=== PATIENT | female | born 1970 | race Caucasian/White ===

== ENCOUNTER 2016-08-29 07:27 | Day surgery (SDC) | payer BC ==
[2016-08-24 10:04] LABS: BASOPHILS 0.2 %; BASOPHILS ABSOLUTE 0.01 10/3/uL (0.0-0.16); EOSINOPHILS 0.8 %; EOSINOPHILS ABSOLUTE 0.05 10/3/uL (0.0-0.53); HEMATOCRIT 41.5 % (36.0-48.0); HEMOGLOBIN 14.5 g/dL (12.0-16.0); IMMATURE GRANULOCYTES 0.2 %; IMMATURE GRANULOCYTES ABSOLUTE 0.01 10/3/uL (0.0-0.11); LYMPHOCYTES 43.7 %; LYMPHOCYTES ABSOLUTE 2.62 10/3/uL (0.67-4.30); MEAN CORPUS HGB CONC 34.9 g/dL (32.0-36.0); MEAN CORPUSCULAR HEMOGLOB 30.8 pg (26.0-34.0); MEAN PLATELET VOLUME 8.7 fL (9.2-13.0); MONOCYTES 6.8 %; MONOCYTES ABSOLUTE 0.41 10/3/uL (0.21-1.20); NEUTROPHILS 48.3 %; NEUTROPHILS ABSOLUTE 2.89 10/3/uL (2.02-8.40); PLATELET COUNT 176 10/3/uL (150-400); RBC DISTRIBUTION WIDTH 12.6 % (12.0-16.0); RED CELL COUNT 4.71 10/6/uL (4.0-5.6)
[2016-08-24 10:12] LABS: MANUAL DIFF NO %; MEAN CORPUSCULAR VOLUME 88.1 fL (80-100)
[2016-08-24 10:20] LABS: A/G RATIO 1.2 (0.7-1.9); ALKALINE PHOSPHATASE 87 U/L (45-117); BUN (BLOOD UREA NITROGEN) 17 MG/DL (6-23); CALCIUM, SERUM 9.1 MG/DL (8.5-10.4); CHLORIDE, SERUM 106 MMOL/L (96-112); CO2 (CARBON DIOXIDE) 30 MMOL/L (24-34); CREATININE 0.88 MG/DL (0.55-1.02); GFR AFRICAN AMERICAN 92 ML/MIN (>=60); GFR NON AFRICAN AMERICAN 79 ML/MIN (>=60); GLOBULIN 3.3 G/DL (2.5-4.1); GLUCOSE, SERUM 88 MG/DL (60-99); POTASSIUM, SERUM 4.5 MMOL/L (3.5-5.3); SGOT(AST) 16 U/L (5-40); SGPT(ALT) 16 U/L (5-65); SODIUM, SERUM 143 MMOL/L (135-148); TOTAL PROTEIN 7.3 G/DL (6.0-8.5)
--- NOTE | ~2016-08-29 | OP ---
Record Of Operation [facility] [address] [place]. [address] NAME: VISH MAI : 72 STATUS : [facility]#: [id number] AGE: 46 ADM/REG DATE : 08/29/16 MR#: [id number] REPORT SERV DATE: 08/30/16 DICTATED BY: KELLEY FERRER III DATE: 08/29/16 REPORT STATUS : Draft TRANSCRIBED BY: MODL DATE: 08/29/16 DATE OF PROCEDURE: 08/29/2016 PREOPERATIVE DIAGNOSIS: Recurrent hidradenitis suppurativa of the right proximal thigh. OPERATIVE DIAGNOSIS: Recurrent hidradenitis suppurativa of the right proximal thigh. PROCEDURE: Wide resection of recurrent hidradenitis suppurativa, right proximal thigh. SURGEON: Kelley Ferrer M.D. ANESTHESIA: General with intubation. COMPLICATIONS: None. ESTIMATED BLOOD LOSS: Less than 5 mL. SPECIMENS: Hidradenitis suppurativa of the left proximal thigh. DRAINS: None. LAP AND SPONGE COUNT: Correct x3. BRIEF HISTORY: This 46-year-old female presented with recurrent hidradenitis suppurativa of the left proximal thigh. It was felt that wide resection of this area was indicated. This was a chronically draining and intermittently opening wound. This procedure, the risks, benefits, and alternatives, including but not limited to the risk for bleeding, infection, pain, swelling, scarring, deformity to the area, seroma formation, hematoma formation, wound failure, wound dehiscence requiring prolonged wound care, nerve injury, chronic paresthesia, pain, numbness, neuralgia or neuroma, recurrent disease requiring further surgery, and unforeseen complications including deep venous thrombosis, pulmonary embolus, myocardial infarction, stroke, pneumonia, and , were fully explained to the patient prior to surgery. Her questions were answered. She understood the risks and agreed to surgery as planned. DESCRIPTION OF PROCEDURE: After being appropriately identified and after discussing risks of surgery with her again in the preoperative area and after identifying the area of concern with her in the preoperative area, she was taken to the operating room and placed in the supine position on the operating room table. General anesthesia was administered and she was intubated without difficulty. The right proximal thigh and groin were prepped and draped sterilely in usual fashion. After an appropriate "time-out" per [facility] standards, a wide elliptical-shaped incision was made around the area of concern. This included all the skin involved and all the sinus tract involved. The incision was continued through the subcutaneous tissue down to the fascia level. The entire block of tissue was resected. This was sent for permanent pathology. Record Of Operation [facility] [address] [address] NAME: VISH MAI : 72 STATUS : [facility]#: [id number] AGE: 46 ADM/REG DATE : 08/29/16 MR#: [id number] REPORT SERV DATE: 08/30/16 DICTATED BY: KELLEY FERRER III DATE: 08/29/16 REPORT STATUS : Draft TRANSCRIBED BY: BA DATE: 08/29/16 Using sharp dissection, the skin and subcutaneous tissue around the edges of the defect were fully mobilized for several centimeters so as to allow for closure. Hemostasis was assured. The subcutaneous tissue was then closed with interrupted 3-0 chromic sutures. The skin was closed with interrupted 3-0 Prolene sutures. The incision was injected with 0.5% Marcaine. Dressings were applied. Anesthesia was reversed and the patient was taken to the recovery room in stable condition. She tolerated the procedure well. Her family was informed of the results of surgery. The patient was discharged when stable and comfortable. Her family was advised that she should keep the wound clean and dry for 48 hours. She should not drive for two to three days after surgery or while using narcotics, and that she should return in two weeks for followup or sooner if any fever, chills, wound drainage, or other problems prior to that time. She was given a prescription for Percocet 7.5 one t.i.d., #12, as needed for pain, which she was advised not to use while driving. ANTONIO/BA Kelley Ferrer III, M.D. / [id number] CC: Kori Luong III, M.D.
--- NOTE | ~2016-08-29 | PREOPHP ---
PreOp History and Physical [place] [id number] [facility] [place]. [address] NAME: VISH MAI : 72 STATUS : [facility] [place]#: [id number] AGE: 46 ADM/REG DATE : MR#: [id number] REPORT SERV DATE: 08/29/16 DICTATED BY: KELLEY FERRER III DATE: 08/16/16 REPORT STATUS : Draft TRANSCRIBED BY: MODL DATE: 08/16/16 HISTORY OF PRESENT ILLNESS: This is a 46-year-old female who comes to the operating room for excision or resection of hidradenitis suppurativa of the right groin or proximal thigh. The patient has a wound on her right thigh where a previous cystic lesion was excised. She has had intermittent drainage from the area since that time. She appears to have hidradenitis suppurativa of the right proximal thigh or right groin. This has failed to respond to nonoperative management. She comes now for resection of the involved area of the right proximal thigh or groin. PAST MEDICAL HISTORY: Essentially unremarkable. PAST SURGICAL HISTORY: Includes excision of benign cystic lesion from the right proximal thigh, section, hysterectomy, and laparoscopic surgery. REVIEW OF SYSTEMS: The patient complains of weight gain, frequent headaches, and back pain. SOCIAL HISTORY: The patient is . She has a previous history of tobacco use. She has current history of occasional alcohol use. FAMILY HISTORY: Positive for cancer, diabetes, and stroke. ALLERGIES: MORPHINE. MEDICATIONS: Ambien, Zoloft, propranolol, biotin. PHYSICAL EXAMINATION: GENERAL: This is a pleasant female, in no acute distress. She is alert and oriented x3. HEENT: Unremarkable. Cranial nerves 2 through 12 are normal. LUNGS: Clear. CARDIAC: Normal. In the right proximal thigh or groin is an incision which is poorly with a small amount of serosanguineous drainage. This is consistent with hidradenitis suppurativa of the right proximal thigh or groin. ASSESSMENT: 46-year-old female with recurrent hidradenitis suppurativa of the right thigh or groin. PLAN: The patient comes now for wide excision of this area of concern. This procedure, the risks, benefits, and alternatives, including but not limited to the risk for bleeding, infection, pain, swelling, scarring, deformity to the area, seroma formation, hematoma formation, nerve injury, chronic paresthesias, pain, numbness, neuralgia or neuroma, wound failure, wound dehiscence, recurrent disease requiring further surgery, and unforeseen complications including deep venous thrombosis, pulmonary embolus, myocardial infarction, stroke, pneumonia, and have been explained to the patient prior to the surgery. Her PreOp History and Physical [address] [address] NAME: VISH MAI : 72 STATUS : [facility] [place] PAT#: [id number] AGE: 46 ADM/REG DATE : MR#: [id number] REPORT SERV DATE: 08/29/16 DICTATED BY: KELLEY FERRER III DATE: 08/16/16 REPORT STATUS : Draft TRANSCRIBED BY: BA DATE: 08/16/16 questions have been answered. She understands the risks and agrees to the surgery as planned. RHLena/BA Kelley Ferrer III, M.D. / [id number]
[~2016-08-29 07:27] MED LIST: AMB10 PO; CO Q 10 PO; ECHINACEA PO; HARD NAILS PO; HORMONE REPLACEMENT PO; I10 PO; TOPAMAX PO; VITAMIN D1000 UNI1 PO; VITE PO; ZOL50 PO; ZYRTEC ALLGY10 MG PO
== END 2016-08-29 13:49 | disposition home or self-care (01) ==
LOC: SDC 07:27
PROVIDERS: Surgery
PROC: 0JBC0ZZ Excision of Pelvic Region Subcutaneous Tissue and Fascia, Open Approach (ICD-10-PCS; principal; 2016-08-29 09:15)
DX: L73.2 Hidradenitis suppurativa (principal); F41.9 Anxiety disorder, unspecified; G43.909 Migraine, unspecified, not intractable, without status migrainosus; Z88.5 Allergy status to narcotic agent; Z90.710 Acquired absence of both cervix and uterus
CPT/HCPCS: 71020; 80053; 85025; 88305; 93005; A9270-GY; J0690; J1170; J2250; J2405; J3010